=== PATIENT | female | born 1955 | race Caucasian/White ===

== ENCOUNTER 2018-08-26 06:28 | Day surgery (SDC) | payer BC ==
[2018-08-26] VITALS (24 sets, daily range): BP systolic 121–160; BP diastolic 60–96
[~2018-08-26] VITALS: Ht 170.2 cm; Wt 66.8 kg
[~2018-08-26 06:28] MED LIST: ALPR0.5T8 PO; EST1T PO; FURO-150 PO; LEVO500T89 PO; LOSA1TAB36 PO; METR-159 PO; POTA10TA36 PO
[2018-08-26] MEDS ORDERED: normal saline 1000ml 1,000 ML IV SCH (06:50)
[2018-08-26] MEDS ORDERED: CHOL10002 PO (07:01)
[2018-08-26] MEDS ORDERED: QUET-1 PO (07:01)
[2018-08-26] MEDS ORDERED: DIPH25CA83 PO (07:01)
[2018-08-26] MEDS ORDERED: LEVO50TA PO (07:01)
[2018-08-26] MEDS ORDERED: ZIN220C PO (07:01)
[2018-08-26] MEDS ORDERED: HYDR-3965 PO (07:01)
[2018-08-26 07:28] LABS: ALBUMIN 3.6 G/DL (3.4-5.0); ANION GAP 8 (8-16); BLOOD UREA NITROGEN 12 MG/DL (7-18); BUN/CREATININE RATIO 13.3 (6.6-38.0); CALCIUM 9.3 MG/DL (8.5-10.1); CHLORIDE 104 MMOL/L (99-107); GLUCOSE 103 MG/DL (70-104); POTASSIUM 3.7 MMOL/L (3.5-5.1); SODIUM 139 MMOL/L (135-145); TOTAL CARBON DIOXIDE 27.3 MMOL/L (24-32); eGFR 63 ML/MIN
[2018-08-26 07:32] LABS: BASOPHILS # (AUTO) 0.2 X10'3 (0-0.2); BASOPHILS % (AUTO) 2.6 % (0-1); EOSINOPHILS # (AUTO) 0.1 X10'3 (0-0.9); EOSINOPHILS % (AUTO) 1.6 % (0-6); HEMATOCRIT 39.1 % (35.0-45.0); HEMOGLOBIN 13.3 g/dl (12.0-16.0); LYMPHOCYTES # (AUTO) 1.5 X10'3 (1.1-4.8); LYMPHOCYTES % (AUTO) 22.8 % (21-51); MEAN CORPUSCULAR HEMOGLOBIN 30.3 PG (27.0-31.0); MEAN CORPUSCULAR VOLUME 89.3 FL (78-98); MEAN PLATELET VOLUME 8.5 FL (7.4-10.4); MONOCYTES # (AUTO) 0.4 X10'3 (0-0.9); MONOCYTES % (AUTO) 6.3 % (2-12); NEUTROPHILS # (AUTO) 4.4 X10'3 (1.8-7.7); NEUTROPHILS % (AUTO) 66.7 % (42-75); PLATELET COUNT 308 X10'3 (140-440); RED BLOOD COUNT 4.38 X10'6 (4.20-5.60); RED CELL DISTRIBUTION WIDTH 13.1 % (11.5-14.5); WHITE BLOOD COUNT 6.6 X10'3 (4.5-11.0)
[2018-08-26] MEDS ORDERED: midazolam 2 mg/2 ml injection IV PRN (08:45)
[2018-08-26] MEDS ORDERED: fentaNYL/PF 50MCG/1 ML 2ML syringe IV PRN (08:45)
[2018-08-26] MEDS ORDERED: LIDOcaine 1%/PF 5ML 10 MG/ML VIAL ONE (09:03)
[2018-08-26] MEDS ORDERED: fentaNYL/PF 50MCG/1 ML 2ML syringe ONE (09:12)
[2018-08-26] MEDS ORDERED: midazolam 2 mg/2 ml injection ONE (09:12)
[2018-08-26] MEDS ORDERED: LIDOcaine/PRILOcaine 5gm cream TP ONE (09:24)
[2018-08-26] MEDS ORDERED: gelatin sponge, absorbable (Gelfoam 12-7MM) sponge TP ONE (10:08)
[2018-08-26] MEDS ORDERED: HYDROcodone/acetaminophen 10/325mg tab PO ONE (12:30)
== END 2018-08-26 13:30 | disposition home or self-care (01) ==
LOC: SSTAY O 06:28
PROVIDERS: ATTEND Radiology Vascular & Interventional Radiology
DX: K76.9 Liver disease, unspecified (principal); I10 Essential (primary) hypertension; J45.909 Unspecified asthma, uncomplicated; K21.9 Gastro-esophageal reflux disease without esophagitis; Z88.8 Allergy status to other drugs, medicaments and biological substances; Z88.1 Allergy status to other antibiotic agents; Z79.899 Other long term (current) drug therapy; Z80.1 Family history of malignant neoplasm of trachea, bronchus and lung; Z80.8 Family history of malignant neoplasm of other organs or systems; Z85.038 Personal history of other malignant neoplasm of large intestine; Z98.890 Other specified postprocedural states
CPT/HCPCS: 36415; 47000; 77012; 80048; 85025; 85610; J2001; J2250; J3010; J7030; 99152; 99153